=== PATIENT | male | born 1965 | race Caucasian/White ===

== ENCOUNTER 2019-04-15 19:17 | Emergency (ER) | payer SELFPAY ==
[~2019-04-15] VITALS: Ht 170.2 cm; Wt 68.9 kg
[2019-04-15 19:39] VITALS: Ht 170.2 cm; Wt 68.9 kg
[2019-04-15 21:57] VITALS: BP 144/98
== END 2019-04-15 21:57 | disposition home or self-care (01) ==
LOC: ED 19:17
DX: S92.002A Unspecified fracture of left calcaneus, initial encounter for closed fracture (principal); S93.402A Sprain of unspecified ligament of left ankle, initial encounter; W12.XXXA Fall on and from scaffolding, initial encounter; Y93.39 Activity, other involving climbing, rappelling and jumping off; Y92.89 Other specified places as the place of occurrence of the external cause; Y99.8 Other external cause status
CPT/HCPCS: Q0162